=== PATIENT | male | born 2000 | race African-American/Black ===

== ENCOUNTER 2022-08-05 08:17 | Emergency (ER) | payer SELFPAY ==
[2022-08-05 08:22] VITALS: BP 144/73; PULSE 73; RESP 18; TEMP 36.8; O2SAT 99
[2022-08-05 08:23] VITALS: BP 116/74; PULSE 81; RESP 18; TEMP 36.8; O2SAT 100
--- NOTE | 2022-08-05 09:27 | ED_ITS ---
HPI - Male Genitourinary General Chief complaint: Urogenital-Male Stated complaint: pain with urination Time Seen by Provider: 08/05/22 08:50 History of Present Illness HPI Narrative: 22-year-old male no medical problems presents to the emergency room for evaluation of dysuria days. Patient denies any lower back pain or abdominal pain. Denies any testicular pain. Denies any penile discharge. Reports no concerns over STIs. Denies hematuria Related Data Allergies Allergy/AdvReac Type Severity Reaction Status Date / Time No Known Allergies Allergy Verified 08/05/22 08:27 Review of Systems Review of Systems: CONSTITUTIONAL: Denies fever, chills, or sweats. EYES: Denies visual changes, redness, or discharge. ENT: Denies rhinorrhea, congestion, sore throat, or otalgia. CARDIOVASCULAR: Denies chest pain, palpitations, or edema. RESPIRATORY: Denies cough or dyspnea. GASTROINTESTINAL: Denies abdominal pain, nausea, vomiting, or diarrhea. GENITOURINARY: Reports dysuria SKIN: Denies rash or itching. MUSCULOSKELETAL: Denies back pain, joint pain, or myalgia. NEUROLOGIC: Denies headache, numbness, dizziness, or weakness. PSYCHIATRIC: Denies anxiety or depression. Exam Narrative: GENERAL: Well-appearing, well-nourished, no physical limitations, and in no acute distress. HEAD: Normocephalic, atraumatic. EYES: Conjunctivae normal, PERRLA and EOMI. CHEST: Clear to auscultation. No respiratory distress. No wheezes rales or rhonchi. HEART: Regular rate and rhythm. No murmur heard. Normal peripheral pulses. ABDOMEN: Soft, nontender, nondistended, normal active bowel sounds. BACK: No CVA tenderness EXTREMITIES: Normal range of motion. No edema. No clubbing or cyanosis SKIN: Warm, dry, no rash. No noted wounds NEURO: No focal deficits. Alert and oriented x3. MAEW. CN's II-XI intact bilaterally, normal gait PSYCH: Cooperative. Normal mood and affect. Course Vital Signs Vital signs: Vital Signs Temperature 36.8 C 08/05/22 08:22 Pulse Rate 73 08/05/22 08:22 Respiratory Rate 18 08/05/22 08:22 Blood Pressure 144/73 H 08/05/22 08:22 Pulse Oximetry 99 08/05/22 08:22 Oxygen Delivery Room Air 08/05/22 08:22 Temperature 36.8 C 08/05/22 08:23 Pulse Rate 81 08/05/22 08:23 Respiratory Rate 18 08/05/22 08:23 Blood Pressure 116/74 08/05/22 08:23 Pulse Oximetry 100 08/05/22 08:23 Oxygen Delivery Room Air 08/05/22 08:23 MDM - Male Genitourinary Lab Data Labs: Lab Results 08/05/22 Range/Units 09:06 Urine Color Pending Urine Appearance Pending Urine pH Pending Ur Specific [place] Pending Urine Protein Pending Urine Glucose (UA) Pending Urine Ketones Pending Ur Blood (Man) Pending Urine Nitrate Pending Urine Bilirubin Pending Urine Urobilinogen Pending Leukocyte Esterase Rfl Pending Discharge Plan Discharge Follow-up/Referrals: PHYSICIAN NOT ON STAFF,NONSTAFF [Primary Care Provider] -
[2022-08-05 09:32] LABS: Bacteria Urine None Seen /hpf; Non Pathogenic Casts 0-2; RBC Urine 0-2 /hpf (0-2); Squamous Epithelial Cell Urine None seen /hpf (Few)
[2022-08-05 09:50] LABS: Appearance Urine Clear (Clear); Color Urine Dark Orange (Yellow)
[2022-08-05 09:52] LABS: Add Urine Microscopic? YES
[2022-08-05 10:01] VITALS: BP 120/76; PULSE 76; RESP 18; O2SAT 100
== END 2022-08-05 10:03 | disposition home or self-care (01) ==
PROVIDERS: Emergency Medicine; Emergency Provider Nurse Practitioner Family
DX: R30.0 Dysuria (principal)
CPT/HCPCS: 81001; 87086; 99283